=== PATIENT | female | born 1965 | race Caucasian/White ===

== ENCOUNTER 2023-04-03 14:01 | Outpatient (RCR) | payer OTHER | END 2023-04-11 | LOC: WSOH | DX: S83.91XD Sprain of unspecified site of right knee, subsequent encounter (principal); J45.909 Unspecified asthma, uncomplicated; Y99.0 Civilian activity done for income or pay | CPT/HCPCS: 24774; L1810 ==

== ENCOUNTER 2023-06-30 14:00 | Outpatient (RCR) | payer OTHER | END 2023-07-12 | disposition home or self-care (01) | LOC: WSPT | DX: S83.91XD Sprain of unspecified site of right knee, subsequent encounter (principal); X58.XXXD Exposure to other specified factors, subsequent encounter ==

== ENCOUNTER 2023-07-23 15:00 | Outpatient (RCR) | payer OTHER | END 2023-08-12 | LOC: WSOH | DX: S83.91XD Sprain of unspecified site of right knee, subsequent encounter (principal); J45.909 Unspecified asthma, uncomplicated; Y99.0 Civilian activity done for income or pay ==